=== PATIENT | male | born 1985 | race African-American/Black ===

== ENCOUNTER 2019-04-28 19:34 | Emergency (ER) | payer BC ==
[~2019-04-28] VITALS: Ht 162.6 cm; Wt 56.7 kg
== END 2019-04-28 22:50 | disposition home or self-care (01) ==
LOC: ED 19:34
DX: S60.221A Contusion of right hand, initial encounter (principal); W22.8XXA Striking against or struck by other objects, initial encounter; F17.200 Nicotine dependence, unspecified, uncomplicated
CPT/HCPCS: 73130; 99283-25

== ENCOUNTER 2020-03-22 23:38 | Emergency (ER) | payer OTHER ==
[~2020-03-22] VITALS: Ht 162.6 cm; Wt 56.7 kg
[2020-03-23] MEDS ORDERED: NORCO 5-325 TA1 EACH PO (00:50)
[2020-03-23] MEDS ORDERED: KEFLEX500 MG PO (00:50)
== END 2020-03-23 01:10 | disposition home or self-care (01) ==
LOC: ED 23:38
DX: S02.832A Fracture of medial orbital wall, left side, initial encounter for closed fracture (principal); S05.42XA Penetrating wound of orbit with or without foreign body, left eye, initial encounter; S01.112A Laceration without foreign body of left eyelid and periocular area, initial encounter; W27.0XXA Contact with workbench tool, initial encounter; F17.200 Nicotine dependence, unspecified, uncomplicated
CPT/HCPCS: 12011; 70486; 90471; 90715; 99283-25